=== PATIENT | male | born 1970 | race Two or more races ===

== ENCOUNTER 2021-11-01 08:26 | Day surgery (SDC) | payer BC | END 2021-11-01 13:25 | disposition home or self-care (01) | LOC: EDSEX 08:26 → AMB-ENDOS 08:26 | PROVIDERS: ATTEND Surgery | DX: D12.0 Benign neoplasm of cecum (principal); K57.30 Diverticulosis of large intestine without perforation or abscess without bleeding; Z88.8 Allergy status to other drugs, medicaments and biological substances; Z20.822 Contact with and (suspected) exposure to COVID-19 ==